=== PATIENT | male | born 1950 | race American Indian/Alaskan Native ===

== ENCOUNTER 2019-03-03 17:23 | Emergency (ER) | payer SELFPAY ==
[2019-03-03 19:38] LABS: Basophils % (Auto) 0.4 % (0.0-1.8); Eosinophils % (Auto) 0.1 % (0.0-4.3); Hematocrit 38.5 % (35.5-45.6); Hemoglobin 12.9 gm/dl (11.8-15.2); Lymphocytes # (Auto) 1.4 K/mm3 (1.2-5.4); Lymphocytes % (Auto) 24.7 % (13.4-35.0); Mean Corpuscular HGB Conc 33 % (32-34); Mean Corpuscular Volume 89 fl (84-94); Monocytes # (Auto) 0.3 K/mm3 (0.0-0.8); Monocytes % (Auto) 4.6 % (0.0-7.3); Platelet Count 250 K/mm3 (140-440); Red Blood Count 4.34 M/mm3 (3.65-5.03); Red Cell Distribution Width 15.6 % (13.2-15.2)
[2019-03-03 19:57] LABS: Calcium 10.1 mg/dL (8.4-10.2)
--- NOTE | 2019-03-03 20:29 | Emergency Department Report ---
ED General Adult HPI - General Chief complaint: Psych Stated complaint: AMS Time Seen by Provider: 03/03/19 20:16 Source: EMS Mode of arrival: Ambulatory Limitations: No Limitations - History of Present Illness Initial comments: Patient is 68 years old male with history of hypertension and diabetes. Patient brought to the emergency room via EMS from a personal shelter for evaluation of auditory hallucination. EMSs stated that the personal shelter staff stating that patient is talking to himself and he is having obvious auditory hallucination. When I examined the patient patient is alert but disoriented in time place and person. Patient is trying to avoid answering questions by putting a definitive statement which is most likely consistent with dementia. Patient denied hearing voices and he stated that the personal shelter people want to get rid of him because of money. He also stated that they are not giving him any food. Patient also denies any visual hallucination, depression, suicidal ideation or homicidal ideation. Severity scale (0 -10): 0 - Related Data Previous Rx's Medication Instructions Recorded Last Taken Type Ibuprofen [Motrin] 600 mg PO Q8H PRN #20 tablet 03/06/19 Unknown Rx metFORMIN [Glucophage] 500 mg PO QDAY #30 tab 03/06/19 Unknown Rx Allergies Allergy/AdvReac Type Severity Reaction Status Date / Time No Known Allergies Allergy Unverified 03/03/19 18:41 ED Review of Systems ROS: Stated complaint: AMS Other details as noted in HPI Comment: All other systems reviewed and negative Constitutional: denies: chills, fever Respiratory: denies: cough, shortness of breath Cardiovascular: denies: chest pain Gastrointestinal: diarrhea. denies: abdominal pain Musculoskeletal: denies: back pain Neurological: denies: headache, weakness, numbness, paresthesias, confusion ED Past Medical Hx - Past Medical History Hx Hypertension: Yes Hx Diabetes: Yes - Surgical History Past Surgical History?: No - Social History Smoking Status: Never Smoker Substance Use Type: None - Medications Home Medications: Home Medications Medication Instructions Recorded Confirmed Last Taken Type Ibuprofen [Motrin] 600 mg PO Q8H PRN #20 tablet 03/06/19 Unknown Rx metFORMIN [Glucophage] 500 mg PO QDAY #30 tab 03/06/19 Unknown Rx ED Physical Exam - General Limitations: No Limitations General appearance: alert, in no apparent distress - Head Head exam: Present: atraumatic, normocephalic, normal inspection - Eye Eye exam: Present: normal appearance - ENT ENT exam: Present: normal exam, normal orophraynx, mucous membranes moist - Neck Neck exam: Present: normal inspection, full ROM. Absent: tenderness, meningismus, lymphadenopathy, thyromegaly - Respiratory Respiratory exam: Present: normal lung sounds bilaterally - Cardiovascular Cardiovascular Exam: Present: regular rate, normal rhythm, normal heart sounds - GI/Abdominal GI/Abdominal exam: Present: soft, normal bowel sounds. Absent: distended, tenderness, guarding, rebound, rigid - Extremities Exam Extremities exam: Present: normal inspection, full ROM, normal capillary refill - Back Exam Back exam: Present: normal inspection, full ROM. Absent: CVA tenderness (R), CVA tenderness (L), muscle spasm, paraspinal tenderness - Neurological Exam Neurological exam: Present: alert, altered, CN II-XII intact. Absent: oriented X3, motor sensory deficit - Psychiatric Psychiatric exam: Present: normal mood. Absent: agitated, homicidal ideation, suicidal ideation - Skin Skin exam: Present: warm, intact, normal color ED Course Vital Signs 03/03/19 03/03/19 03/03/19 18:41 18:45 18:50 Temperature 98.4 F 98.4 F Pulse Rate 83 87 Respiratory 18 18 18 Rate Blood Pressure 134/77 Blood Pressure 134/77 [Right] O2 Sat by Pulse 100 100 Oximetry 03/03/19 03/03/19 03/04/19 19:51 23:14 01:28 Temperature Pulse Rate 75 77 69 Respiratory 17 15 16 Rate Blood Pressure Blood Pressure 155/89 153/76 137/69 [Right] O2 Sat by Pulse 97 97 97 Oximetry 03/04/19 03/04/19 03/04/19 06:23 07:00 11:20 Temperature 98.4 F Pulse Rate 61 54 L 82 Respiratory 17 18 18 Rate Blood Pressure Blood Pressure 170/83 118/80 169/99 [Right] O2 Sat by Pulse 96 98 100 Oximetry 03/04/19 03/04/19 11:42 17:31 Temperature Pulse Rate 89 Respiratory 18 16 Rate Blood Pressure Blood Pressure 159/88 [Right] O2 Sat by Pulse 97 Oximetry ED Medical Decision Making - Lab Data Result diagrams: 03/03/19 19:15 03/03/19 19:15 - Radiology Data Radiology results: report reviewed CT brain is negative for acute finding. - Medical Decision Making Patient is 68 years old male with history of hypertension and diabetes. Patient brought to the emergency room via EMS from a personal shelter for evaluation of auditory hallucination. EMSs stated that the personal shelter staff stating that patient is talking to himself and he is having obvious auditory hallucination. When I examined the patient patient is alert but disoriented in time place and person. Patient is trying to avoid answering questions by putting a definitive statement which is most likely consistent with dementia. Patient denied hearing voices and he stated that the personal shelter people want to get rid of him because of money. He also stated that they are not giving him any food. Patient also denies any visual hallucination, depression, suicidal ideation or homicidal ideation. Labs reviewed and is unremarkable. CT brain is negative for acute finding. Patient seen by mental health and recommended social service for placement. Critical care attestation.: If time is entered above; I have spent that time in minutes in the direct care of this critically ill patient, excluding procedure time. ED Disposition Clinical Impression: Altered mental state, Dementia Disposition: DC-01 TO HOME OR SELFCARE Is pt being admited?: No Condition: Stable Referrals: APRIL DESOUZA MD [Primary Care Provider] - 3-5 Days
--- NOTE | 2019-03-03 21:03 | Cat Scan Report ---
CT head/brain wo con INDICATION / CLINICAL INFORMATION: 68 years Male; AMS. TECHNIQUE: Routine CT head without contrast. All CT scans at this location are performed using CT dos e reduction for ALARA by means of automated exposure control. COMPARISON: None. FINDINGS: BRAIN / INTRACRANIAL CONTENTS: Prominent ventricular system seen, although the temporal horns are not significantly dilated. Normal pressure hydrocephalus might be a consideration. Otherwise, no acute acute hemorrhage, mass effect, midline shift, or acute, large territorial infarct . Mild cerebral atrophy. Basal cisterns remain well-visualized. There are moderate to extensive areas of decreased attenuation in the white matter of the cerebral he mispheres. These are nonspecific findings and may be related to microangiopathy (hypertension, diabet es, atherosclerosis), given the patient's age, although other etiologies cannot be excluded. It might be difficult to evaluate for small areas of ischemia without diffusion imaging by MRI. CRANIOCERVICAL JUNCTION: No significant abnormality. ORBITS: No significant abnormality of visualized orbits. SINUSES / MASTOIDS: Mild mucosal thickening seen in the ethmoids. ADDITIONAL FINDINGS: Mild atherosclerotic disease is seen in the anterior circulation. IMPRESSION: 1. Prominent ventricular system as described above. 2. Otherwise, no focal mass, hemorrhage, or large infarct seen. 3. Fairly extensive white matter disease noted. Follow-up with MRI, as clinically warranted. Signer Name: Fran Guzmán MD, III Signed: 03/03/2019 8:58 PM Workstation Name: [id number]
[2019-03-03 21:14] LABS: Amphetamine Screen,Urine PRESUMPTIVE NEGATIVE; Benzodiazepines Screen,Urine PRESUMPTIVE NEGATIVE; Cannabinoid Screen,Urine PRESUMPTIVE NEGATIVE; Cocaine Screen,Urine PRESUMPTIVE NEGATIVE; Methadone Screen,Urine PRESUMPTIVE NEGATIVE; Opiate Screen,Urine PRESUMPTIVE NEGATIVE
[2019-03-03 21:38] LABS: Bilirubin,Urine NEG (Negative); Blood,Urine SM (Negative); Color,Urine Yellow (Yellow); Hyaline Casts,Urine 1 /LPF; Mucus,Urine 2+ /HPF; Urobilinogen,Urine < 2.0 mg/dL (<2.0)
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
[2019-03-04 17:32] VITALS: BP 159/88
[2019-03-05] MEDS ORDERED: TYLENOL PO ONE (03:22)
--- NOTE | 2019-03-05 11:40 | Progress Note ---
Subjective - Reason for Consult Consult date: 03/05/19 Reason for consult: Psychiatry Follow-up - Chief Complaint Chief complaint: "I would like to go to another home" 68 year old male who presented to the ER for AH's. Today the patient was calm and cooperative during the assessment. He is adamant that he do not want to return to his personal senior living. He stated that the staff isn't nice and it isn't a "good fit" for him. He was able to recall 3/3 numbers within 5 mins and state the current/past [place] Presidents. He denies a mental health dx when asked. Per the record, no behavioral disturbances by the patent overnight. He denies SI/HI's and AVH's. Mental Status Exam - Vital signs Last Vital Signs Temp 98.4 F 03/04/19 07:00 Pulse 89 03/04/19 17:31 Resp 16 03/04/19 17:31 BP 159/88 03/04/19 17:31 Pulse Ox 97 03/04/19 17:31 - Exam Narrative exam: MSE: Appearance: calm, cooperative Behavior: regular eye contact Speech: somewhat hyper verbal Mood: "okay" Affect: congruent to mood Thought Process: linear Thought Content: denies SI/HI's and AVH's Motor Activity: sitting up in bed Cognition: A/O x3 Insight: appropriate Judgment: appropriate Assessment and Plan Impression: No overt psychosis with the patient. Today the patient was calm and cooperative during the assessment. Recommendation/Plan: Case Mgmt involvement, the patient will need assistance with placement. Psy sign off. Will staff with Dr Susana Cabrera.
== END 2019-03-05 18:45 | disposition home or self-care (01) ==
LOC: ED 17:23
DX: F41.9 Anxiety disorder, unspecified (principal); I10 Essential (primary) hypertension; E11.9 Type 2 diabetes mellitus without complications
CPT/HCPCS: 36415; 70450; 80048; 80307; 80320; 81001; 85025; G0480

== ENCOUNTER 2019-03-06 15:09 | Emergency (ER) | payer SELFPAY ==
--- NOTE | 2019-03-06 15:38 | Event Note ---
ED Screening Note Date of service: 03/06/19 Time: 15:35 ED Screening Note: 68 y o male presents to Ed cc of left knee pain x this am He denies fall, injuries or trauma This initial assessment/diagnostic orders/clinical plan/treatment(s) is/are subject to change based on patients health status, clinical progression and re- assessment by fellow clinical providers in the ED. Further treatment and workup at subsequent clinical providers discretion. Patient/guardian urged not to elope from the ED as their condition may be serious if not clinically assessed and managed. Initial orders include:
[2019-03-06 15:41] VITALS: BP 130/76
--- NOTE | 2019-03-06 16:03 | Emergency Department Report ---
Chief Complaint: Extremity Problem,Nontraumatic Stated Complaint: LT LEG PAIN Time Seen by Provider: 03/06/19 15:34 - HPI History of Present Illness: This is a68 y o male presents to ED after being discharged from the ED this morning cc of knee pain He denies fall, injuries or trauma. Pt also stating that he has no where to go and doesnt have a home. He denies f/c/n/v/ or any other problems - ROS Review of Systems: As noted in HPI - Exam Vital Signs: Vital Signs 03/06/19 15:34 Temperature 98.7 F Pulse Rate 88 Respiratory 16 Rate Blood Pressure 130/76 O2 Sat by Pulse 95 Oximetry Physical Exam: GEN:AAO x 3, no acute distress EXTREMITY:no injuries noted, ambulatory, non tender, no swelling to bilateral knees or legs NO SI/HI MSE screening note: Focused history and physical exam performed. Due to findings the following was ordered: ED Medical Decision Making - Medical Decision Making 68 y o male presents needing social work and the resources for placement to retirement Spoke with Donnie from Social work who gave patient a list of shelters Pt was given resources and retirement list Pt is in no acute distress Vital signs are stable ED Disposition for MSE Clinical Impression: Physically well but worried, Knee pain Disposition: DC-01 TO HOME OR SELFCARE Is pt being admited?: No Does the pt Need Aspirin: No Condition: Stable Instructions: Knee Pain (ED) Prescriptions: Ibuprofen [Motrin] 600 mg PO Q8H PRN #20 tablet PRN Reason: Pain Referrals: [facility] [Outside] - 3-5 Days [facility] [Outside] - 3-5 Days Time of Disposition: 16:13
== END 2019-03-06 16:38 | disposition home or self-care (01) ==
LOC: ED 15:09
DX: M25.562 Pain in left knee (principal); Z71.1 Person with feared health complaint in whom no diagnosis is made

== ENCOUNTER 2020-05-04 01:50 | Emergency (ER) | payer SELFPAY ==
[2020-05-04 02:35] LABS: Basophils % (Auto) 0.7 % (0.0-1.8); Eosinophils % (Auto) 0.9 % (0.0-4.3); Hematocrit 39.3 % (35.5-45.6); Hemoglobin 13.1 gm/dl (11.8-15.2); Lymphocytes # (Auto) 2.2 K/mm3 (1.2-5.4); Lymphocytes % (Auto) 51.2 % (13.4-35.0); Mean Corpuscular HGB Conc 33 % (32-34); Mean Corpuscular Volume 90 fl (84-94); Monocytes # (Auto) 0.3 K/mm3 (0.0-0.8); Platelet Count 272 K/mm3 (140-440); Red Blood Count 4.37 M/mm3 (3.65-5.03); Red Cell Distribution Width 15.6 % (13.2-15.2)
[2020-05-04 02:53] LABS: BUN/Creatinine Ratio 17; Blood Urea Nitrogen 19 mg/dL (9-20); Calcium 9.8 mg/dL (8.4-10.2); Hemolysis Index 3
--- NOTE | 2020-05-04 04:00 | Cat Scan Report ---
CT head/brain wo con INDICATION: Altered mental status, head injury. TECHNIQUE: Routine CT head without contrast. All CT scans at this location are performed using CT dose reduction for ALARA by means of automated exposure control. COMPARISON: Head CT on 03/03/2019 FINDINGS: BRAIN / INTRACRANIAL CONTENTS: No acute hemorrhage, brain edema, mass effect, or hydrocephalus. Emilie l abbott-white differentiation. There is stable ventriculomegaly and confluent white matter hypoattenua tion likely reflecting chronic small vessel ischemic change. CALVARIUM/SKULL BASE/CRANIOCERVICAL JUNCTION: No evidence of fracture. ORBITS: No significant abnormality of visualized orbits. SINUSES / MASTOIDS: No significant abnormality of visualized sinuses and mastoid air cells. ADDITIONAL FINDINGS: None. IMPRESSION: 1. No acute intracranial abnormality. No adverse change from the prior exam. Signer Name: Joey Hyatt MD Signed: 05/04/2020 3:56 AM Workstation Name: [id number]
--- NOTE | 2020-05-04 04:01 | Cat Scan Report ---
CT MAXILLOFACIAL WITHOUT CONTRAST INDICATION: Altered mental status, R eye injury. TECHNIQUE: CT facial bones without contrast All CT scans at this location are performed using CT dose reduction for ALARA by means of automated exposure control. COMPARISON: None available. FINDINGS: FACIAL BONES: There is a nondisplaced right nasal fracture. PARANASAL SINUSES: No significant abnormality. ORBITS: No significant abnormality. VISUALIZED INTRACRANIAL STRUCTURES: No significant abnormality. ADDITIONAL FINDINGS: None. IMPRESSION: 1. Nondisplaced right nasal fracture. 2. No additional acute maxillofacial fracture. Signer Name: Joey Hyatt MD Signed: 05/04/2020 3:57 AM Workstation Name: [id number]
--- NOTE | 2020-05-04 04:04 | Cat Scan Report ---
CT CERVICAL SPINE WITHOUT CONTRAST INDICATION: Altered mental status, head injury. TECHNIQUE: Axial CT images of the spine were obtained. Sagittal and coronal reformatted images were produced. Al l CT scans at this location are performed using CT dose reduction for ALARA by means of automated exp osure control. COMPARISON: None available. FINDINGS: ACUTE FRACTURE(S) OR SUBLUXATION: None. SPINAL DEGENERATIVE CHANGES: There is mild generalized spondylosis without appreciable significant sp inal canal narrowing or neural foraminal narrowing. PARASPINAL SOFT TISSUES: No soft tissue swelling or other acute abnormalities. ADDITIONAL FINDINGS: No significant additional findings. IMPRESSION: 1. No acute fracture or subluxation in the spine in neutral position. Signer Name: Joey Hyatt MD Signed: 05/04/2020 4:00 AM Workstation Name: [id number]
--- NOTE | 2020-05-04 04:14 | XRay Report ---
CHEST 2 VIEWS INDICATION / CLINICAL INFORMATION: altered mental status. COMPARISON: None available. FINDINGS: SUPPORT DEVICES: None. HEART / MEDIASTINUM: No significant abnormality. LUNGS / PLEURA: No significant pulmonary or pleural abnormality. No pneumothorax. ADDITIONAL FINDINGS: No significant additional findings. IMPRESSION: 1. No acute findings. Signer Name: Joey Hyatt MD Signed: 05/04/2020 4:10 AM Workstation Name: [email or web address]
[2020-05-04] MEDS ORDERED: ZIPRASIDONE MESYLATE 20 MG VIAL IM ONE (06:41)
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
[2020-05-04 07:35] LABS: Creatine Kinase MB 2.4 ng/mL (0.0-4.0)
[2020-05-04 08:26] LABS: Bilirubin,Urine NEG (Negative); Blood,Urine NEG (Negative); Color,Urine Yellow (Yellow); Protein,Urine <15 mg/dL mg/dL (Negative); Urobilinogen,Urine < 2.0 mg/dL (<2.0)
[2020-05-04 08:26] LABS: Alanine Aminotransferase 12 units/L (7-56); Bilirubin,Direct < 0.2 mg/dL (0-0.2)
[2020-05-04 08:39] LABS: Albumin 4.3 g/dL (3.9-5)
[2020-05-04 09:14] LABS: Amphetamine Screen,Urine Negative; Benzodiazepines Screen,Urine Negative; Cannabinoid Screen,Urine Negative; Cocaine Screen,Urine Negative; Methadone Screen,Urine Negative; Opiate Screen,Urine Negative
[2020-05-04] MEDS ORDERED: ALUM-MAG HYDROXIDE-SIMETHICONE 200-200-20MG/5ML ORAL LIQD 30 ML PO PRN (15:03)
[2020-05-04] MEDS ORDERED: MAGNESIUM HYDROXIDE (MOM) ORAL LIQD UDC PO PRN (15:03)
[2020-05-04] MEDS ORDERED: ACETAMINOPHEN 325 MG TAB PO PRN (15:03)
[2020-05-04] MEDS ORDERED: ZIPRASIDONE MESYLATE 20 MG VIAL IM PRN (15:04)
[2020-05-04] MEDS ORDERED: IBUPROFEN 600 MG TAB PO PRN (15:55)
[2020-05-04] MEDS: metFORMIN 500 MG TAB PO SCH (17:43)
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
[2020-05-05] MEDS: metFORMIN 500 MG TAB PO SCH (12:45)
[2020-05-05] MEDS: risperiDONE 0.25 MG TAB PO SCH ×2 (12:45→22:25)
[2020-05-05] MEDS: clonazePAM 0.5 MG TAB PO SCH ×2 (12:45→22:25)
[2020-05-05] MEDS ORDERED: traZODone 50 MG TAB PO SCH (22:00)
[2020-05-06 03:12] VITALS: BP 134/63
[2020-05-06] MEDS: risperiDONE 0.25 MG TAB PO SCH (09:48)
[2020-05-06] MEDS: clonazePAM 0.5 MG TAB PO SCH (09:48)
[2020-05-06] MEDS: metFORMIN 500 MG TAB PO SCH (09:48)
--- NOTE | 2020-05-06 10:05 | Progress Note ---
Subjective - Reason for Consult Consult date: 05/06/20 Reason for consult: aggression - Chief Complaint Chief complaint: The patient's medical record was reviewed and the patient's progress discussed with the nursing staff. The nurse caring for the patient states the patient is rude, and uncooperative and refuses to take off of his jacket. During my interview with the patient this morning, he is sitting on side of the bed eating. He is verbally aggressive and rude. He is uncooperative. He comes across as paranoid. The patient asked why was I in his room. He says "those questions you are asking are insulting." When explaining to the patient why I was asking, he says "I don't care." He denies hallucinations of any kind. When asked about SI/HI, he says "did I ever tell you that I were." He then says "that's enough." REVIEW OF SYSTEMS Unable to obtain MENTAL STATUS EXAMINATION General Appearance: Dressed appropriately Behavior: Uncooperative, rude, good eye contact Mood: Affect and affective range: Euthymic Thought Process: goal directed Speech: Normal tone and rate Suicidal Ideation: Denies Homicidal Ideation: Denies Hallucinations: Delusions: None elicited Insight and Judgment: Memory/Cognition: Limited Attention: Orientation: Alert, oriented x 3 Assessment Dementia with Behavioral Disturbance PLAN Initiated 1013 Increased Risperidone 1mg po BID Start Depakote 125mg po BID Sitter: Defer to primary Medical: Per primary Disposition: recommend acute inpatient psychiatric treatment Will follow. Thank you for this consult Mental Status Exam - Vital signs Last Vital Signs Temp 98.3 F 05/06/20 03:11 Pulse 87 05/06/20 03:11 Resp 18 05/06/20 08:38 BP 134/63 05/06/20 03:11 Pulse Ox 96 05/05/20 17:00
[2020-05-06] MEDS ORDERED: DIVALPROEX DR 125 MG TAB PO SCH (11:00)
[2020-05-06] MEDS ORDERED: risperiDONE 0.25 MG TAB PO SCH (22:00)
== END 2020-05-06 12:20 | disposition home or self-care (01) ==
LOC: ED 01:50
DX: S02.2XXB Fracture of nasal bones, initial encounter for open fracture (principal); S05.11XA Contusion of eyeball and orbital tissues, right eye, initial encounter; F03.91 Unspecified dementia, unspecified severity, with behavioral disturbance; I10 Essential (primary) hypertension; E11.9 Type 2 diabetes mellitus without complications; Y04.2XXA Assault by strike against or bumped into by another person, initial encounter; Y93.89 Activity, other specified; Y92.89 Other specified places as the place of occurrence of the external cause; Y99.8 Other external cause status
CPT/HCPCS: 36415; 70450; 70486; 71046; 72125; 80048; 80076; 80307; 81001; 82550; 82553; 83735; 84484; 85025; 93005; 96372; 99285; J3486